=== PATIENT | male | born 1965 | race Caucasian/White ===

== ENCOUNTER → 2024-09-29 10:09 | Outpatient (REF) | payer BC, SELFPAY ==
[2024-09-29 11:04] LABS: ALT (SGPT) 25 U/L (0-50); AST (SGOT) 24 U/L (17-59); Albumin 4.6 g/dl (3.5-5.0); Alkaline Phosphatase 73 U/L (38-126); Direct Bilirubin 0.1 mg/dl (0.0-0.4); Total Bilirubin 0.5 mg/dl (0.2-1.3); Total Protein 6.9 g/dl (6.3-8.2)
== END ==
LOC: REG 10:09
PROVIDERS: ATTENDING PHYSICIAN Podiatrist Primary Podiatric Medicine; FAMILY PHYSICIAN Family Medicine
DX: B35.1 Tinea unguium (principal); M79.672 Pain in left foot
CPT/HCPCS: 36415; 80076